=== PATIENT | female | born 1995 | race Two or more races ===

== ENCOUNTER 2020-04-30 22:15 | Emergency (ER) | payer SELFPAY ==
[~2020-04-30] VITALS: Ht 165.1 cm; Wt 71.7 kg
[2020-04-30 22:38] VITALS: BP 122/77
[2020-04-30 23:14] LABS: Basophils # (auto) 0.1 10 ^3/uL (0-0.2); Basophils % (auto) 0.7 % (0.0-2.0); Eosinophils # (auto) 0 10 ^3/uL (0-0.8); Eosinophils % (auto) 0.5 % (0.0-7.0); Hematocrit 30.5 % (36.0-46.0); Hemoglobin 10.6 g/dL (12.2-16.2); Lymphocytes # (auto) 1.2 10 ^3/uL (0.4-5.4); Lymphocytes % (auto) 16.3 % (10.0-50.0); Mean Corpuscular Hgb Conc. 34.8 g/dL (32.0-36.0); Mean Corpuscular Volume 94.9 fL (80.0-100.0); Monocytes # (auto) 0.4 10 ^3/uL (0-1.3); Monocytes % (auto) 6.2 % (0.0-12.0); Neutrophils # (auto) 5.5 10 ^3/uL (1.6-8.6); Neutrophils % (auto) 76.3 % (37.0-80.0); Platelet Count (auto) 208 10^3/uL (140-450); Red Blood Cells 3.21 10^6/uL (4.0-5.20); Red Cell Distribution Width 14.3 % (11.8-14.3); White Blood Cell 7.2 10^3/uL (4.4-10.8)
[2020-04-30 23:30] LABS: Albumin 3.4 g/dL (3.4-5.0); BUN/Creatinine Ratio 8.1; Calcium 7.1 mg/dL (8.5-10.1); Potassium 3.6 mmol/L (3.5-5.1)
[2020-04-30 23:33] LABS: Bilirubin, Total 0.4 mg/dL (0.2-1.0); Total Protein 7.5 g/dL (6.4-8.2)
== END 2020-05-01 02:12 | disposition home or self-care (01) ==
LOC: ER 22:17
DX: O26.891 Other specified pregnancy related conditions, first trimester (principal); R94.6 Abnormal results of thyroid function studies; Z3A.14 14 weeks gestation of pregnancy; Z90.89 Acquired absence of other organs
CPT/HCPCS: 36415; 80053; 84443; 85025

== ENCOUNTER 2023-10-31 09:22 | Inpatient (IN) | payer MEDICAID ==
[~2023-10-31] VITALS: Ht 165.1 cm; Wt 64.1 kg
[2023-10-31 09:55] LABS: Basophils % (auto) 0.6 % (0.0-2.0); Eosinophils # (auto) 0 10 ^3/uL (0-0.8); Eosinophils % (auto) 0.2 % (0.0-7.0); Hemoglobin 9.3 g/dL (12.2-16.2); Mean Corpuscular Hgb Conc. 32.2 g/dL (32.0-36.0); Monocytes # (auto) 0.7 10 ^3/uL (0-1.3); Neutrophils # (auto) 6.8 10 ^3/uL (1.6-8.6)
[2023-10-31 09:58] LABS: Basophils # (auto) 0 10 ^3/uL (0-0.2); Hematocrit 28.7 % (36.0-46.0); Lymphocytes # (auto) 0.8 10 ^3/uL (0.4-5.4); Lymphocytes % (auto) 9.5 % (10.0-50.0); Mean Corpuscular Volume 80.7 fL (80.0-100.0); Monocytes % (auto) 8.1 % (0.0-12.0); Neutrophils % (auto) 81.6 % (37.0-80.0); Red Blood Cells 3.56 10^6/uL (4.0-5.20); Red Cell Distribution Width 18.1 % (11.8-14.3); White Blood Cell 8.3 10^3/uL (4.4-10.8)
[2023-10-31 10:14] LABS: Alanine Aminotransferase 14 U/L (7-40); Albumin 4.7 g/dL (3.2-4.8); Alkaline Phosphatase 75 U/L (46-116); Anion Gap 10 (5-15); Aspartate Aminotransferase 10 U/L (13-40); Blood Urea Nitrogen 9 mg/dL (9-23); Calcium 6.9 mg/dL (8.5-10.1); Carbon Dioxide 26 mmol/L (20-30); Chloride 103 mmol/L (98-107); Glucose 84 mg/dL (74-106); Potassium 3.7 mmol/L (3.5-5.1); Sodium 139 mmol/L (136-145)
[2023-10-31 10:15] LABS: Bilirubin, Total 0.8 mg/dL (0.2-1.0); Total Protein 7.5 g/dL (5.7-8.2)
[2023-10-31] MEDS ORDERED: CALCIUM GLUC 1,000mg/50ml-NS 50 ML IV ONE (11:30)
[2023-10-31] MEDS ORDERED: CALCIUM CARB 500 MG CHEW TAB PO ONE (11:45)
[2023-10-31] MEDS ORDERED: NITROGLYCERIN 0.4 MG SL TAB SL PRN (11:45)
[2023-10-31] MEDS ORDERED: MORPHINE SULFATE INJ 2 MG/ml SYRG IV PRN (11:45)
[2023-10-31] MEDS: SODIUM CHLORIDE 0.9% 1,000 ML IV SCH ×2 (12:04→21:45)
[2023-10-31] MEDS: CALCIUM CARB 500 MG CHEW TAB PO SCH ×2 (15:23→17:43)
[2023-10-31 16:09] VITALS: BP 105/59; PULSE 79; RESP 14; TEMP 99; O2SAT 95
[2023-10-31 16:25] VITALS: PULSE 82
[2023-10-31] MEDS ORDERED: [UNRECOGNIZED DRUG - CODE] PO (16:27)
[2023-10-31] MEDS ORDERED: ACET120S38 PR (16:29)
[2023-10-31] MEDS ORDERED: LEVO200C3 PO (16:29)
[2023-10-31 17:08] VITALS: BP 105/59; PULSE 79; RESP 14; TEMP 99; O2SAT 95
[2023-10-31] MEDS: ACETAMINOPHEN 325 MG TAB PO PRN (18:35)
[2023-10-31 20:00] VITALS: PULSE 85; PULSE 89; RESP 16; O2SAT 96
[2023-11-01] VITALS (7 sets, daily range): BP systolic 97–110; BP diastolic 51–56; PULSE 72–88; RESP 17–20; TEMP 98.5–99.9; O2SAT 93–100
[2023-11-01 01:16] LABS: Urine Amorphous Crystal FEW /hpf (None Seen); Urine Bacteria FEW /hpf (None Seen); Urine Blood 3+ /uL (Negative); Urine Clarity HAZY (Clear); Urine Color Yellow (Yellow); Urine Mucus FEW (None Seen); Urine Protein, UAD 1+ (Negative); Urine Specific Gravity 1.009 (1.001-1.035); Urine Urobilinogen Normal (Negative); Urine WBC 106 /hpf (0 - 5); Urine WBC Clumps PRESENT /hpf (None Seen); Urine pH 5.5 (5.0-8.0)
[2023-11-01] MEDS: ACETAMINOPHEN 325 MG TAB PO PRN ×3 (04:01→17:33)
[2023-11-01 06:58] LABS: Basophils # (auto) 0 10 ^3/uL (0-0.2); Basophils % (auto) 0.4 % (0.0-2.0); Eosinophils # (auto) 0 10 ^3/uL (0-0.8); Eosinophils % (auto) 0.1 % (0.0-7.0); Hemoglobin 8.7 g/dL (12.2-16.2)
[2023-11-01 06:59] LABS: Hematocrit 26.7 % (36.0-46.0); Lymphocytes % (auto) 10.1 % (10.0-50.0); Mean Corpuscular Hgb Conc. 32.6 g/dL (32.0-36.0); Mean Corpuscular Volume 79.9 fL (80.0-100.0); Monocytes # (auto) 0.9 10 ^3/uL (0-1.3); Monocytes % (auto) 9.6 % (0.0-12.0); Neutrophils # (auto) 7.6 10 ^3/uL (1.6-8.6); Neutrophils % (auto) 79.8 % (37.0-80.0); Nucleated Red Blood Cells % 0.2 %; Red Blood Cells 3.35 10^6/uL (4.0-5.20); Red Cell Distribution Width 17.7 % (11.8-14.3); White Blood Cell 9.5 10^3/uL (4.4-10.8)
[2023-11-01 07:13] LABS: Albumin 4.1 g/dL (3.2-4.8); Alkaline Phosphatase 65 U/L (46-116); Anion Gap 11 (5-15); Aspartate Aminotransferase < 8 U/L (13-40); Bilirubin, Total 0.7 mg/dL (0.2-1.0); Calcium 6.9 mg/dL (8.5-10.1); Carbon Dioxide 24 mmol/L (20-30); Chloride 104 mmol/L (98-107); Glucose 79 mg/dL (74-106); Potassium 3.4 mmol/L (3.5-5.1); Sodium 139 mmol/L (136-145); Total Protein 6.9 g/dL (5.7-8.2)
[2023-11-01 07:16] LABS: Alanine Aminotransferase < 9 U/L (7-40); BUN/Creatinine Ratio 6.7 (10.0-20.0); Blood Urea Nitrogen < 5 mg/dL (9-23)
[2023-11-01] MEDS: CALCIUM CARB 500 MG CHEW TAB PO SCH ×3 (09:48→17:33)
[2023-11-01] MEDS: SODIUM CHLORIDE 0.9% 1,000 ML IV SCH (09:51)
[2023-11-01] MEDS ORDERED: ENOXAPARIN SOD 40 MG/0.4 ML SYRINGE SC SCH (10:00)
[2023-11-01] MEDS ORDERED: CALCIUM GLUC 1,000mg/50ml-NS 50 ML IV ONE (10:00)
[2023-11-01] MEDS ORDERED: cefTRIAXone 1GM/50ML D5W 50 ML IV ONE (14:00)
[2023-11-01] MEDS ORDERED: POTASSIUM CHL 20 Meq TABLET PO ONE (14:00)
[2023-11-01] MEDS ORDERED: CALCITRIOL 0.25 MCG CAP PO ONE (14:00)
[2023-11-01] MEDS ORDERED: LEVOTHYROXINE SODIUM 100 MCG TAB PO ONE (14:00)
[2023-11-01] MEDS: ONDANSETRON HCL 4 MG/2 ML VIAL IV PRN (20:29)
[2023-11-01] MEDS: CALCITRIOL 0.25 MCG CAP PO SCH (22:05)
[2023-11-02] VITALS (7 sets, daily range): BP systolic 94–102; BP diastolic 51–63; PULSE 61–73; RESP 14–20; TEMP 97.2–98.4; O2SAT 97–100
[2023-11-02 06:29] LABS: Calcium 7.1 mg/dL (8.7-10.4); Chloride 103 mmol/L (98-107); Potassium 3.2 mmol/L (3.5-5.1); Sodium 140 mmol/L (136-145)
[2023-11-02 06:30] LABS: Anion Gap 8 (5-15); Carbon Dioxide 29 mmol/L (20-30)
[2023-11-02 06:33] LABS: % Iron Saturation 4.8 % (15-50)
[2023-11-02 06:35] LABS: Glucose 87 mg/dL (74-106)
[2023-11-02 06:36] LABS: Magnesium 1.7 mg/dL (1.6-2.6)
[2023-11-02 06:47] LABS: BUN/Creatinine Ratio 6.7 (10.0-20.0); Blood Urea Nitrogen < 5 mg/dL (9-23)
[2023-11-02] MEDS: CALCIUM CARB 500 MG CHEW TAB PO SCH ×3 (07:33→20:33)
[2023-11-02] MEDS: LEVOTHYROXINE SODIUM 100 MCG TAB PO SCH (07:33)
[2023-11-02] MEDS: cefTRIAXone 1GM/50ML D5W 50 ML IV SCH (08:25)
[2023-11-02] MEDS: ACETAMINOPHEN 325 MG TAB PO PRN ×2 (09:55→20:36)
[2023-11-02] MEDS: CALCITRIOL 0.25 MCG CAP PO SCH ×2 (09:56→20:33)
[2023-11-02] MEDS ORDERED: SODIUM FERR GLUC 62.5MG/5ML 125 MG in SODIUM CHL 0.9% 100 ML IV ONE (14:30)
[2023-11-02] MEDS ORDERED: POTASSIUM CHL 20 Meq TABLET PO ONE (14:30)
[2023-11-02] MEDS ORDERED: MAGNESIUM SULFATE 1GM/100ML 100 ML IV SCH (15:00)
[2023-11-02] MEDS: ONDANSETRON HCL 4 MG/2 ML VIAL IV PRN (18:12)
[2023-11-02] MEDS: MAGNESIUM SULFATE 1GM/100ML 100 ML IV SCH ×2 (20:33→22:02)
[2023-11-03 05:00] VITALS: BP 98/56; PULSE 67; RESP 17; TEMP 98.6; O2SAT 97
[2023-11-03] MEDS: LEVOTHYROXINE SODIUM 100 MCG TAB PO SCH (06:00)
[2023-11-03 06:50] LABS: Calcium 7.6 mg/dL (8.7-10.4); Carbon Dioxide 27 mmol/L (20-30); Eosinophils # (auto) 0 10 ^3/uL (0-0.8); Lymphocytes # (auto) 1.5 10 ^3/uL (0.4-5.4); Monocytes # (auto) 0.5 10 ^3/uL (0-1.3); Nucleated Red Blood Cells % 0.1 %; White Blood Cell 4.7 10^3/uL (4.4-10.8)
[2023-11-03 06:52] LABS: Basophils # (auto) 0 10 ^3/uL (0-0.2); Basophils % (auto) 0.9 % (0.0-2.0); Hematocrit 28.1 % (36.0-46.0); Hemoglobin 9.1 g/dL (12.2-16.2); Lymphocytes % (auto) 31.7 % (10.0-50.0); Mean Corpuscular Hemoglobin 25.6 pg (28.0-32.0); Mean Corpuscular Hgb Conc. 32.5 g/dL (32.0-36.0); Mean Corpuscular Volume 78.6 fL (80.0-100.0); Monocytes % (auto) 10.5 % (0.0-12.0); Neutrophils # (auto) 2.6 10 ^3/uL (1.6-8.6); Neutrophils % (auto) 55.9 % (37.0-80.0); Red Blood Cells 3.57 10^6/uL (4.0-5.20); Red Cell Distribution Width 17.6 % (11.8-14.3)
[2023-11-03 06:55] LABS: Blood Urea Nitrogen 6 mg/dL (9-23); Glucose 80 mg/dL (74-106)
[2023-11-03 06:56] LABS: Magnesium 2.2 mg/dL (1.6-2.6)
[2023-11-03 07:00] LABS: Anion Gap 10 (5-15); Chloride 102 mmol/L (98-107); Potassium 3.7 mmol/L (3.5-5.1); Sodium 139 mmol/L (136-145)
[2023-11-03 08:00] VITALS: PULSE 63; PULSE 69; RESP 14; O2SAT 99
[2023-11-03 09:00] VITALS: BP 91/50; PULSE 69; RESP 14; TEMP 97.2; O2SAT 99
[2023-11-03] MEDS: cefTRIAXone 1GM/50ML D5W 50 ML IV SCH (09:10)
[2023-11-03] MEDS: ONDANSETRON HCL 4 MG/2 ML VIAL IV PRN (09:10)
[2023-11-03] MEDS: CALCITRIOL 0.25 MCG CAP PO SCH (09:11)
[2023-11-03] MEDS: ACETAMINOPHEN 325 MG TAB PO PRN (09:11)
[2023-11-03] MEDS: CALCIUM CARB 500 MG CHEW TAB PO SCH (09:11)
[2023-11-03] MEDS ORDERED: MAGNESIUM OXIDE 400 MG TAB PO SCH (10:00)
[2023-11-03] MEDS ORDERED: DOCUSATE SOD 100 MG CAP PO ONE (11:15)
[2023-11-03] MEDS ORDERED: CALC500C52 PO (11:22)
[2023-11-03] MEDS ORDERED: FER325T PO (11:22)
[2023-11-03] MEDS ORDERED: LEVO500T91 PO (11:22)
[2023-11-03] MEDS ORDERED: DOCU-94 PO (11:22)
[2023-11-03] MEDS ORDERED: CAL025T PO (11:22)
[2023-11-03] MEDS ORDERED: LEV100T PO (11:22)
[2023-11-03] MEDS ORDERED: MAGN400T40 PO (11:22)
[2023-11-03 12:51] VITALS: BP 92/58; PULSE 67; RESP 18; TEMP 98.2; O2SAT 96
[2023-11-03 15:15] VITALS: BP 91/50; PULSE 67; RESP 18; TEMP 36.8; O2SAT 96
[2023-11-03 16:47] VITALS: BP 105/51; PULSE 77; RESP 18; TEMP 97.9; O2SAT 97
== END 2023-11-03 16:30 | disposition home or self-care (01) | DRG 424 ==
LOC: ER 09:22 → TELE 11:51 → TELE-WESTW 15:45
PROVIDERS: ADMIT Nurse Practitioner Family; ATTEND Internal Medicine
DX: E21.3 Hyperparathyroidism, unspecified (principal); E83.51 Hypocalcemia; D50.0 Iron deficiency anemia secondary to blood loss (chronic); E89.0 Postprocedural hypothyroidism; N39.0 Urinary tract infection, site not specified; N92.0 Excessive and frequent menstruation with regular cycle; B96.20 Unspecified Escherichia coli [E. coli] as the cause of diseases classified elsewhere; N83.202 Unspecified ovarian cyst, left side; Z85.850 Personal history of malignant neoplasm of thyroid
CPT/HCPCS: 36415; 76536; 76856; 80048; 80053; 81001; 82306; 82310; 83540; 83550; 83735; 83970; 84100; 84443; 85025; 87086; 87088; 87186; 99291; G0378; J2405

== ENCOUNTER → 2023-12-18 | Outpatient (CLI) | payer MEDICAID ==
[~2023-12-18] MED LIST: ACET120S38 PR; CAL025T PO; CALC500C52 PO; DOCU-94 PO; FER325T PO; LEV100T PO; LEVO200C3 PO; LEVO500T91 PO; MAGN400T40 PO; [UNRECOGNIZED DRUG - CODE] PO
[2023-12-18 13:39] LABS: Cortisol,PM 7.21 ug/dL (3.44-16.76); Triglycerides 84 mg/dL (< 150)
[2023-12-18 13:40] LABS: LDL Cholesterol 87 mg/dL (< 100)
[2023-12-18 13:41] LABS: Cholesterol 150 mg/dL (< 200); HDL Cholesterol 57 mg/dL (40-59)
[2023-12-18 13:44] LABS: Folate (Folic Acid) 19.78 ng/mL (>5.38); Free T4 (Free Thyroxine) 1.32 ng/dL (0.89-1.76)
[2023-12-22 23:06] LABS: Estrogens Total 284 pg/mL (.)
== END | disposition home or self-care (01) ==
LOC: LAB 12:53
PROVIDERS: ATTEND Internal Medicine
DX: Z13.1 Encounter for screening for diabetes mellitus (principal); Z13.6 Encounter for screening for cardiovascular disorders; E03.9 Hypothyroidism, unspecified; E83.51 Hypocalcemia
CPT/HCPCS: 36415; 80061; 82533; 82672; 82746; 83036; 83540; 83970; 84439; 84443

== ENCOUNTER 2024-02-15 09:13 | Emergency (ER) | payer MEDICAID ==
[~2024-02-15] VITALS: Ht 165.1 cm; Wt 62.9 kg
[2024-02-15 09:55] LABS: Urine Bacteria FEW /hpf (None Seen); Urine Blood Negative /uL (Negative); Urine Clarity Turbid (Clear); Urine Color Yellow (Yellow); Urine Hyaline Cast FEW /lpf (0 - 2); Urine Mucus FEW (None Seen); Urine Protein, UAD Negative (Negative); Urine Specific Gravity 1.026 (1.001-1.035); Urine Urobilinogen Normal (Negative); Urine WBC 3 /hpf (0 - 5); Urine pH 6.5 (5.0-9.0)
[2024-02-15 10:21] VITALS: BP 115/65; PULSE 86; RESP 14; TEMP 98.4; O2SAT 100
[2024-02-15] MEDS: ACETAMINOPHEN 500 MG TAB PO ONE (10:37)
[2024-02-15] MEDS ORDERED: ACET-1080 PO (10:46)
== END 2024-02-15 10:42 | disposition home or self-care (01) ==
LOC: ER 09:13
DX: O26.891 Other specified pregnancy related conditions, first trimester (principal); R10.2 Pelvic and perineal pain; G43.009 Migraine without aura, not intractable, without status migrainosus; Z3A.10 10 weeks gestation of pregnancy; Z98.890 Other specified postprocedural states
CPT/HCPCS: 36415; 81001; 81025; 84702

== ENCOUNTER 2024-07-15 10:13 | Inpatient (IN) | payer MEDICAID ==
[~2024-07-15] VITALS: Ht 165.1 cm; Wt 70.0 kg
[~2024-07-15 10:13] MED LIST changes: +ACET-1080 PO; -LEV100T PO; +LEVO-849 PO
[2024-07-15 10:56] LABS: Basophils # (auto) 0 10 ^3/uL (0-0.2); Basophils % (auto) 0.4 % (0.0-2.0); Eosinophils # (auto) 0.1 10 ^3/uL (0-0.8); Eosinophils % (auto) 0.7 % (0.0-7.0); Hemoglobin 9.1 g/dL (12.2-16.2); Lymphocytes # (auto) 0.9 10 ^3/uL (0.4-5.4); Lymphocytes % (auto) 10.7 % (10.0-50.0); Mean Corpuscular Hemoglobin 27.1 pg (28.0-32.0); Mean Corpuscular Hgb Conc. 32.5 g/dL (32.0-36.0); Mean Corpuscular Volume 83.4 fL (80.0-100.0); Monocytes # (auto) 0.5 10 ^3/uL (0-1.3); Monocytes % (auto) 5.8 % (0.0-12.0); Neutrophils # (auto) 6.6 10 ^3/uL (1.6-8.6); Neutrophils % (auto) 82.4 % (37.0-80.0); Nucleated Red Blood Cells % 0.1 %; Platelet Count (auto) 241 10^3/uL (140-450); Red Blood Cells 3.36 10^6/uL (4.0-5.20); Red Cell Distribution Width 14.7 % (11.8-14.3)
[2024-07-15 10:57] VITALS: PULSE 96; RESP 16; O2SAT 98
[2024-07-15 10:59] LABS: Urine Bacteria None Seen /hpf (None Seen)
[2024-07-15 11:13] LABS: Alanine Aminotransferase 16 U/L (7-40); Alkaline Phosphatase 172 U/L (46-116); Anion Gap 10 (5-15); Aspartate Aminotransferase 15 U/L (13-40); BUN/Creatinine Ratio 12.5 (10.0-20.0); Blood Urea Nitrogen 7 mg/dL (9-23); Carbon Dioxide 25 mmol/L (20-30); Chloride 104 mmol/L (98-107); Glucose 96 mg/dL (74-106); Potassium 3.2 mmol/L (3.5-5.1); Sodium 139 mmol/L (136-145)
[2024-07-15 11:14] LABS: Bilirubin, Total 0.5 mg/dL (0.2-1.0); Total Protein 6.9 g/dL (5.7-8.2)
[2024-07-15 11:29] LABS: Calcium 5.9 mg/dL (8.7-10.4)
[2024-07-15 11:52] LABS: Urine Blood Negative /uL (Negative); Urine Clarity Clear (Clear); Urine Color Light-Yellow (Yellow); Urine Protein, UAD Negative (Negative); Urine Specific Gravity 1.007 (1.001-1.035); Urine Urobilinogen Normal (Negative); Urine WBC <1 /hpf (0 - 5); Urine pH 6.5 (5.0-9.0)
[2024-07-15] MEDS: POTASSIUM CHL 20 Meq TABLET PO ONE ×2 (12:00→16:45)
[2024-07-15] MEDS: CALCIUM CHL 100MG/ML 1,000 MG in D5W 5% 100 ML IV ONE (12:00)
[2024-07-15] MEDS ORDERED: ACETAMINOPHEN 325 MG TAB PO PRN (16:45)
[2024-07-15] MEDS ORDERED: DOCUSATE SOD 100 MG CAP PO PRN (16:45)
[2024-07-15] MEDS ORDERED: ONDANSETRON HCL 4 MG/2 ML VIAL IV PRN (16:45)
[2024-07-15] MEDS ORDERED: NITROGLYCERIN 0.4 MG SL TAB SL PRN (16:45)
[2024-07-15] MEDS ORDERED: MORPHINE SULFATE INJ 2 MG/ml SYRG IV PRN (16:45)
[2024-07-15 16:57] VITALS: BP 108/51; PULSE 63; RESP 17; TEMP 98; O2SAT 97
[2024-07-15] MEDS ORDERED: SODIUM CHLOR 0.9% PF (SALINE LOCK) 10ML VIAL/SYR IV SCH (22:00)
[2024-07-15] MEDS ORDERED: CALCIUM CARB 500 MG CHEW TAB PO SCH (22:00)
[2024-07-16] MEDS ORDERED: LEVOTHYROXINE SODIUM 100 MCG TAB PO SCH (06:00)
== END 2024-07-15 19:02 | disposition left against medical advice (07) | DRG 566 ==
LOC: ER 10:13 → UNDOADMOB 12:02 → LDRP 12:02 → TELE 16:23
PROVIDERS: ADMIT Nurse Practitioner Family; ATTEND Nurse Practitioner Family
DX: O99.413 Diseases of the circulatory system complicating pregnancy, third trimester (principal); E83.51 Hypocalcemia; O99.283 Endocrine, nutritional and metabolic diseases complicating pregnancy, third trimester; E87.6 Hypokalemia; I49.1 Atrial premature depolarization; Z53.29 Procedure and treatment not carried out because of patient's decision for other reasons; Z79.1 Long term (current) use of non-steroidal anti-inflammatories (NSAID); Z79.899 Other long term (current) drug therapy; Z83.3 Family history of diabetes mellitus; Z3A.32 32 weeks gestation of pregnancy; Z85.850 Personal history of malignant neoplasm of thyroid; E03.9 Hypothyroidism, unspecified; E20.9 Hypoparathyroidism, unspecified
CPT/HCPCS: 36415; 59025; 76805; 76818; 80053; 81001; 84443; 85025; 93005; 94760; 96365; G0378; J7060

== ENCOUNTER → 2024-07-22 | Outpatient (CLI) | payer MEDICAID ==
[~2024-07-22] MED LIST changes: +PREN-96 PO
[2024-07-22 11:28] LABS: Basophils # (auto) 0 10 ^3/uL (0-0.2); Eosinophils # (auto) 0 10 ^3/uL (0-0.8); Lymphocytes # (auto) 0.9 10 ^3/uL (0.4-5.4); Mean Corpuscular Hemoglobin 27.4 pg (28.0-32.0); Mean Corpuscular Hgb Conc. 33.5 g/dL (32.0-36.0); Nucleated Red Blood Cells % 0.1 %
[2024-07-22 11:31] LABS: Basophils % (auto) 0.6 % (0.0-2.0); Eosinophils % (auto) 0.4 % (0.0-7.0); Hematocrit 24.9 % (36.0-46.0); Hemoglobin 8.3 g/dL (12.2-16.2); Lymphocytes % (auto) 12.3 % (10.0-50.0); Mean Corpuscular Volume 81.7 fL (80.0-100.0); Monocytes # (auto) 0.4 10 ^3/uL (0-1.3); Neutrophils % (auto) 80.7 % (37.0-80.0); Platelet Count (auto) 192 10^3/uL (140-450); Red Blood Cells 3.04 10^6/uL (4.0-5.20); Red Cell Distribution Width 15.2 % (11.8-14.3); White Blood Cell 7.4 10^3/uL (4.4-10.8)
[2024-07-22 12:49] LABS: Alanine Aminotransferase 13 U/L (7-40); Albumin 3.7 g/dL (3.2-4.8); Alkaline Phosphatase 169 U/L (46-116); Anion Gap 10 (5-15); Aspartate Aminotransferase 14 U/L (13-40); BUN/Creatinine Ratio 9.6 (10.0-20.0); Bilirubin, Total 0.5 mg/dL (0.2-1.0); Blood Urea Nitrogen < 5 mg/dL (9-23); Carbon Dioxide 24 mmol/L (20-30); Chloride 103 mmol/L (98-107); Cholesterol 318 mg/dL (< 200); Glucose 71 mg/dL (74-106); HDL Cholesterol 46 mg/dL (40-59); LDL Cholesterol 238 mg/dL (< 100); Potassium 3.3 mmol/L (3.5-5.1); Sodium 137 mmol/L (136-145); Total Protein 6.3 g/dL (5.7-8.2); Triglycerides 254 mg/dL (< 150)
[2024-07-22 12:52] LABS: Free T3 2.18 pg/mL (2.3-4.2); Free T4 (Free Thyroxine) 1.11 ng/dL (0.89-1.76)
[2024-07-22 13:07] LABS: Calcium 5.9 mg/dL (8.7-10.4)
== END | disposition home or self-care (01) ==
LOC: LAB 11:00
PROVIDERS: ATTEND Internal Medicine
DX: E03.9 Hypothyroidism, unspecified (principal); E20.9 Hypoparathyroidism, unspecified; E87.6 Hypokalemia
CPT/HCPCS: 36415; 80053; 80061; 82306; 83036; 83970; 84439; 84443; 84481; 85025

== ENCOUNTER 2024-07-24 18:17 | Inpatient (IN) | payer MEDICAID ==
[~2024-07-24] VITALS: Ht 165.1 cm; Wt 76.0 kg
[2024-07-24 01:00] VITALS: BP 97/54; PULSE 74; RESP 18; TEMP 98.1; O2SAT 96
[~2024-07-24 18:17] MED LIST changes: -PREN-96 PO
[2024-07-24 19:32] VITALS: BP 103/60; PULSE 86; RESP 19; TEMP 98.5; O2SAT 96
[2024-07-24] MEDS ORDERED: PREN-96 PO (19:48)
[2024-07-24 20:00] VITALS: PULSE 74; RESP 18; O2SAT 98
[2024-07-24 20:25] LABS: Basophils # (auto) 0 10 ^3/uL (0-0.2); Basophils % (auto) 0.4 % (0.0-2.0); Eosinophils # (auto) 0 10 ^3/uL (0-0.8); Eosinophils % (auto) 0.7 % (0.0-7.0); Hematocrit 22.6 % (36.0-46.0); Hemoglobin 7.5 g/dL (12.2-16.2); Lymphocytes # (auto) 0.9 10 ^3/uL (0.4-5.4); Lymphocytes % (auto) 13.6 % (10.0-50.0); Mean Corpuscular Hemoglobin 26.5 pg (28.0-32.0); Mean Corpuscular Hgb Conc. 33.1 g/dL (32.0-36.0); Mean Corpuscular Volume 80.1 fL (80.0-100.0); Monocytes # (auto) 0.5 10 ^3/uL (0-1.3); Monocytes % (auto) 7.3 % (0.0-12.0); Platelet Count (auto) 192 10^3/uL (140-450); Red Blood Cells 2.83 10^6/uL (4.0-5.20); Red Cell Distribution Width 15.3 % (11.8-14.3); White Blood Cell 6.4 10^3/uL (4.4-10.8)
[2024-07-24 20:43] LABS: Alanine Aminotransferase 13 U/L (7-40); Albumin 3.5 g/dL (3.2-4.8); Alkaline Phosphatase 173 U/L (46-116); Anion Gap 9 (5-15); Aspartate Aminotransferase 12 U/L (13-40); BUN/Creatinine Ratio 9.3 (10.0-20.0); Blood Urea Nitrogen 5 mg/dL (9-23); Carbon Dioxide 25 mmol/L (20-30); Chloride 105 mmol/L (98-107); Glucose 82 mg/dL (74-106); Magnesium 1.7 mg/dL (1.6-2.6); Potassium 3.2 mmol/L (3.5-5.1); Sodium 139 mmol/L (136-145)
[2024-07-24 20:44] LABS: Bilirubin, Total 0.4 mg/dL (0.2-1.0)
[2024-07-24 21:00] VITALS: BP 94/58; PULSE 74; RESP 18; TEMP 98.3; O2SAT 98
[2024-07-24] MEDS: MAGNESIUM SULFATE 1GM/100ML 100 ML IV SCH (22:28)
[2024-07-24] MEDS: POTASSIUM CHL 20 Meq TABLET PO ONE (22:33)
[2024-07-24] MEDS ORDERED: CALCITRIOL 1 MCG/ML AMPULE IV ONE (23:30)
[2024-07-24] MEDS: CALCIUM W/VIT D (600MG/400IU) TAB PO ONE (23:38)
[2024-07-24] MEDS: FERROUS SULFATE 325mg EC TAB PO ONE (23:38)
[2024-07-24 23:39] LABS: % Iron Saturation 28.9 % (15-50)
[2024-07-25] VITALS (8 sets, daily range): BP systolic 94–102; BP diastolic 44–55; PULSE 70–84; RESP 17–18; TEMP 97.6–98.5; O2SAT 96–99
[2024-07-25] MEDS: CALCIUM GLUC 1,000mg/50ml-NS 50 ML IV ONE (00:39)
[2024-07-25] MEDS ORDERED: SODIUM CHLORIDE 0.9% 1,000 ML IV SCH (04:30)
[2024-07-25] MEDS: ERGOCALCIFEROL 50,000 UNIT(1.25MG) CAP PO SCH (06:03)
[2024-07-25] MEDS: FERROUS SULFATE 325mg EC TAB PO SCH (08:19)
[2024-07-25 09:41] LABS: Basophils # (auto) 0 10 ^3/uL (0-0.2); Basophils % (auto) 0.6 % (0.0-2.0); Hemoglobin 8.5 g/dL (12.2-16.2); Monocytes # (auto) 0.4 10 ^3/uL (0-1.3); Red Blood Cells 3.16 10^6/uL (4.0-5.20); White Blood Cell 6.8 10^3/uL (4.4-10.8)
[2024-07-25 09:43] LABS: Eosinophils # (auto) 0.1 10 ^3/uL (0-0.8); Eosinophils % (auto) 0.7 % (0.0-7.0); Hematocrit 25.7 % (36.0-46.0); Lymphocytes % (auto) 15.2 % (10.0-50.0); Mean Corpuscular Hgb Conc. 33.2 g/dL (32.0-36.0); Mean Corpuscular Volume 81.3 fL (80.0-100.0); Monocytes % (auto) 6.4 % (0.0-12.0); Neutrophils # (auto) 5.2 10 ^3/uL (1.6-8.6); Neutrophils % (auto) 77.1 % (37.0-80.0); Nucleated Red Blood Cells % 0.3 %; Platelet Count (auto) 179 10^3/uL (140-450); Red Cell Distribution Width 15.2 % (11.8-14.3)
[2024-07-25 09:51] LABS: Alanine Aminotransferase 12 U/L (7-40); Albumin 3.7 g/dL (3.2-4.8); Alkaline Phosphatase 184 U/L (46-116); Aspartate Aminotransferase 12 U/L (13-40); Bilirubin, Total 0.5 mg/dL (0.2-1.0); Calcium 6.6 mg/dL (8.7-10.4); Chloride 106 mmol/L (98-107); Glucose 69 mg/dL (74-106); Magnesium 1.9 mg/dL (1.6-2.6); Potassium 3.5 mmol/L (3.5-5.1); Sodium 137 mmol/L (136-145); Total Protein 6.2 g/dL (5.7-8.2)
[2024-07-25 10:08] LABS: BUN/Creatinine Ratio 9.1 (10.0-20.0); Blood Urea Nitrogen < 5 mg/dL (9-23)
[2024-07-25 10:15] LABS: Anion Gap 8 (5-15); Carbon Dioxide 23 mmol/L (20-31)
[2024-07-25] MEDS: IRON SUCROSE COMPLEX 100 ML IV SCH (12:07)
[2024-07-25 13:40] LABS: Free T3 2.25 pg/mL (2.3-4.2); Free T4 (Free Thyroxine) 1.09 ng/dL (0.89-1.76)
[2024-07-25] MEDS: CALCIUM CARB 500 MG CHEW TAB PO SCH (14:08)
[2024-07-25] MEDS: POTASSIUM CHL 20 Meq TABLET PO ONE (16:10)
[2024-07-25] MEDS: CALCITRIOL 0.25 MCG CAP PO ONE (16:10)
[2024-07-25] MEDS: CALCIUM GLUC 1,000mg/50ml-NS 50 ML IV SCH (16:11)
[2024-07-25] MEDS: MAGNESIUM OXIDE 400 MG TAB PO SCH (21:26)
[2024-07-26 01:00] VITALS: BP 91/58; PULSE 73; RESP 17; TEMP 98.2; O2SAT 96
[2024-07-26 02:54] LABS: Urine Bacteria None Seen /hpf (None Seen)
[2024-07-26 03:23] LABS: Amphetamine Screen, Urine Neg (NEGATIVE); Barbiturate Scree,Urine Neg (NEGATIVE); Benzodiazephine Screen, Urine Neg (NEGATIVE); Cannabinoid Screen, Urine Neg (NEGATIVE); Cocaine Screen, Urine Neg (NEGATIVE); Opiate Scree,Urine Neg (NEGATIVE); Phencyclidine Screen, Urine Neg (NEGATIVE)
[2024-07-26 03:37] LABS: Urine Amorphous Crystal FEW /hpf (None Seen); Urine Blood Negative /uL (Negative); Urine Clarity Clear (Clear); Urine Color Light-Yellow (Yellow); Urine Protein, UAD Negative (Negative); Urine Specific Gravity 1.018 (1.001-1.035); Urine Urobilinogen Normal (Negative); Urine WBC 1 /hpf (0 - 5); Urine pH 7.5 (5.0-9.0)
[2024-07-26 05:00] VITALS: BP 94/56; PULSE 75; RESP 17; TEMP 97.8; O2SAT 95
[2024-07-26] MEDS ORDERED: LEVOTHYROXINE SODIUM 100 MCG TAB PO SCH (06:00)
[2024-07-26] MEDS: LEVOTHYROXINE SODIUM 100 MCG TAB PO SCH (06:15)
[2024-07-26] MEDS: LEVOTHYROXINE SODIUM 25 MCG TAB PO SCH (06:15)
[2024-07-26 06:48] LABS: Basophils # (auto) 0 10 ^3/uL (0-0.2); Eosinophils # (auto) 0.1 10 ^3/uL (0-0.8); Eosinophils % (auto) 0.7 % (0.0-7.0); Lymphocytes # (auto) 1.4 10 ^3/uL (0.4-5.4); Nucleated Red Blood Cells % 0.1 %
[2024-07-26 06:52] LABS: Basophils % (auto) 0.5 % (0.0-2.0); Hematocrit 24.9 % (36.0-46.0); Hemoglobin 8.2 g/dL (12.2-16.2); Lymphocytes % (auto) 16.7 % (10.0-50.0); Mean Corpuscular Hemoglobin 26.9 pg (28.0-32.0); Mean Corpuscular Hgb Conc. 32.8 g/dL (32.0-36.0); Monocytes # (auto) 0.6 10 ^3/uL (0-1.3); Monocytes % (auto) 7.2 % (0.0-12.0); Neutrophils # (auto) 6.1 10 ^3/uL (1.6-8.6); Neutrophils % (auto) 74.9 % (37.0-80.0); Platelet Count (auto) 182 10^3/uL (140-450); Red Blood Cells 3.04 10^6/uL (4.0-5.20); Red Cell Distribution Width 15.5 % (11.8-14.3); White Blood Cell 8.2 10^3/uL (4.4-10.8)
[2024-07-26 07:01] LABS: Chloride 105 mmol/L (98-107); Potassium 3.5 mmol/L (3.5-5.1); Sodium 138 mmol/L (136-145)
[2024-07-26 07:02] LABS: Anion Gap 9 (5-15); Calcium 7.4 mg/dL (8.7-10.4); Carbon Dioxide 24 mmol/L (20-31)
[2024-07-26 07:07] LABS: BUN/Creatinine Ratio 8.6 (10.0-20.0); Blood Urea Nitrogen 5 mg/dL (9-23); Glucose 68 mg/dL (74-106)
[2024-07-26 07:08] LABS: Magnesium 1.8 mg/dL (1.6-2.6)
[2024-07-26 08:00] VITALS: PULSE 87
[2024-07-26 09:00] VITALS: BP 99/60; PULSE 76; RESP 18; TEMP 98.2; O2SAT 100
[2024-07-26] MEDS: POTASSIUM EFFERVESENT TAB 25 MEQ PO ONE (10:50)
[2024-07-26] MEDS: CALCITRIOL 0.25 MCG CAP PO SCH (10:50)
[2024-07-26] MEDS ORDERED: CALC0.25 PO (12:07)
[2024-07-26] MEDS ORDERED: POTA-215 PO (12:07)
[2024-07-26] MEDS ORDERED: LEVO25TA6 PO (12:07)
== END 2024-07-26 11:40 | disposition home or self-care (01) | DRG 566 ==
LOC: TELE-EAST 18:44
PROVIDERS: ADMIT Internal Medicine Geriatric Medicine; ATTEND Internal Medicine Geriatric Medicine
DX: O99.013 Anemia complicating pregnancy, third trimester (principal); E83.51 Hypocalcemia; O99.283 Endocrine, nutritional and metabolic diseases complicating pregnancy, third trimester; E03.9 Hypothyroidism, unspecified; E87.6 Hypokalemia; E83.42 Hypomagnesemia; Z3A.34 34 weeks gestation of pregnancy; Z85.850 Personal history of malignant neoplasm of thyroid
CPT/HCPCS: 36415; 76818; 80048; 80053; 80307; 81001; 82306; 82310; 82330; 82728; 83540; 83550; 83735; 83970; 84100; 84439; 84443; 84481; 84702; 85025; G0378; J0636; J1756